=== PATIENT | male | born 1975 | race Caucasian/White ===

== ENCOUNTER 2019-09-21 12:58 | Outpatient (CLI) | payer MEDICAID ==
[2019-09-21 13:50] VITALS: BP 118/75
--- NOTE | 2019-09-21 13:50 | SLEEP CARE CONSULTATION ---
Information from patient questionnaire entered by Massiel Kemp. I have reviewed and concur with the information entered by Massiel Kemp. This document represents the service I personally performed and the decisions made by me, Osbaldo Layne MD, [facility]. History of Present Illness Reason for Visit: New patient Chief Complaint: reports: Insomnia, Unrefreshed sleep, Snoring, Excessive daytime sleepiness, Observed pauses in breathing, Fatigue, Frequent awakenings at night Duration of Symptoms: several years Usual bedtime: 2211-0825 Time it takes to fall asleep: 60 Snores at night: Yes Observed to quit breathing while asleep: Yes Sleeps alone due to snoring: No Number of times waking at night: 2-3 Reasons for waking at night: reports: Pain, Bathroom Recalls having dreams: Yes Usually gets out of bed at: [id number] Feels refreshed in the morning: No Morning headache: No Sleepy or fatigued during the day: Yes Ever fallen asleep while driving: No Takes day naps: No Dreams during day naps: No Prior sleep studies: No Additional HPI information: I had the pleasure of seeing Mr. Alvarez today regarding the possibility of him having a sleep disorder. As you know, he is a 43 year old gentleman who complains of not sleeping well. Recently, he was seen in the ER and observed to stop breathing while sedated. The patient tells me that he normally goes to bed around 10:30 - 11 pm, and it takes him approximately 60 minutes to fall asleep. He has been told that he snores loudly and irregularly at night. He has also been observed to stop breathing in his sleep. His occasionally can still sleep in the same bed. He can recall waking up on the average of 2 - 3 times during the night. Most of the time he wakes up because of having to use the bathroom and indigestion. He has awakened occasionally because of his own snori ng, choking, and having to gasp for air. There is not a lot of tossing and turning in his sleep. No somniloquy (sleep talking) or somnambulism (sleep walking). Generally he can recall having dreams. In the morning he usually gets up out of the bed around 7:30 - 8 a.m. not feeling refreshed nor rested. He usually does not have a morning headache. During the day he complains of feeling sleepy and fatigued. His score on [place] Sleepiness Scale is 12 out of 24. He has never fallen asleep while driving nor has had any accident due to sleepiness. He usually does not take naps during the day. Upon falling asleep during the day he denies having vivid dreams. He has never had sleep paralysis, experienced cataplexy or symptoms of restless leg syndrome. He denies having impaired concentration during the day. 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 Patient is and lives in [place]. Have you smoked in the past 12 months: No Alcohol use: No Caffeine use: Yes Caffeine amount and frequency: 1/day Family History Family history of sleep disordered breathing: Yes Family Hx Sleep Apnea: Mother: Sleep apnea - Treated, Father: Snoring Allergies and Home Medications Drug allergies reviewed: Yes Home medication list reviewed: Yes Review of Systems Weight gain over past 5 years: 15 Cardiovascular: denies: high blood pressure, palpitations, chest pain, irregular heart rate or pulse, leg or foot swelling, have to sleep sitting up, other Respiratory: denies: shortness of breath, wheeze, sputum production, chronic cough, other Gastrointestinal: reports: heartburn Urinary: denies: incontinence, frequency, urgency, impotence, other Neurological: denies: headaches, seizure, head trauma, disorientation, speech dysfunction, gait or balance problems, fainting or unconsciousness, other Psychiatric: denies: Attention Deficit Hyperactivity, anxiety, depression, mood disorder, claustrophobia, other Ear/Nose/Throat: reports: nasal congestion, wisdom teeth removed Musculoskeletal: reports: neck pain, back pain Immunologic: reports: sneezing, itching Physical Exam Vital signs obtained and entered by: Dr. Layne Blood Pressure: 118/75 Cuff size: regular Heart Rate: 83 O2 Saturation: 97 Height: 5 ft 7 in Weight: 210 lb Body Mass Index: 32.8 BMI Classification: Obesity Class 1 Neck circumference: 16.5 Mood/affect: normal HEENT: No craniofacial malformation Nostrils: patent to airflow Turbinates: normal Septum: midline Mouth and throat: narrow oropharynx Soft palate: long Hard palate: normal Uvula: normal Uvula visualization: 100% Mallampati Class I Tongue: normal in size Tonsils: small Chin and jaw: normal size and position Neck: normal w/o lymphadenopathy or thyromegaly Heart: regular rate and rhythm Lungs: wheeze Abdomen: soft, non-tender Extremities: no edema or clubbing Neurologic: intact, no focal deficits Impression and Plan IMPRESSION: 1. Obstructive Sleep Apnea-Hypopnea Syndrome, as suggested by history of loud and irregular snoring, observed cessation of breath while asleep, frequent river ken[place] during the night, unrefreshed sleep, and daytime hypersomnolence. Narrow oropharynx and obesity are common predisposing factors for obstructive sleep apnea-hypopnea syndrome. Pathophysiology of sleep-disordered breathing was discussed. I recommend proceeding to polysomnography to confirm the diagnosis and to assess severity. If he has significant sleep disordered breathing, a manual CPAP titration study will also be performed to find the optimal treatment pressure. I informed the patient of what the sleep studies involve and after some discussion, he agreed to proceed. Plan: 1. Schedule polysomnography + manual CPAP titration study and return in 1 to 2 weeks after the study to discuss result and initiate therapy. 2. Avoid long distance driving or when feeling sleepy. 3. Avoid alcohol, sedative and muscle relaxant around bedtime. 4. Attempt to lose weight. I spent 100% of this 20 minute visit face to face with the patient with greater than 50% of this was spent time counseling the patient and coordination of care.
== END 2019-09-21 12:59 | disposition home or self-care (01) ==
LOC: SC 12:58
PROVIDERS: ATTEND Internal Medicine Pulmonary Disease
DX: G47.10 Hypersomnia, unspecified (principal); R06.83 Snoring; R06.81 Apnea, not elsewhere classified; G47.8 Other sleep disorders; E66.9 Obesity, unspecified; Z68.32 Body mass index [BMI] 32.0-32.9, adult
CPT/HCPCS: 99203; 99212

== ENCOUNTER 2019-10-05 20:27 | Outpatient (CLI) | payer MEDICAID | END 2019-10-05 20:28 | disposition home or self-care (01) | LOC: SC 20:27 | PROVIDERS: ATTEND Internal Medicine Pulmonary Disease | DX: G47.33 Obstructive sleep apnea (adult) (pediatric) (principal) | CPT/HCPCS: 95811 ==

== ENCOUNTER 2019-11-17 13:13 | Outpatient (CLI) | payer MEDICAID ==
[2019-11-17 14:41] VITALS: BP 114/66
--- NOTE | 2019-11-17 14:41 | SLEEP CARE CONSULTATION ---
Information from patient questionnaire entered by Nancy Hoskins. I have reviewed and concur with the information entered by Nancy Hoskins. This document represents the service I personally performed and the decisions made by me, Shantal Montes, RN, MSN, [employer]. History of Present Illness Initial [place] Sleepiness Scale score: 12 Current [place] Sleepiness Scale score: 13 Additional HPI information: RIVER MCGHEE III returns for follow up and results of the recently performed polysomnography. I explained the pathophysiology behind obstructive sleep apnea. We then spent quite a bit of time discussing different treatment options. For mild obstructive sleep apnea, surgery and oral appliance are alternatives to nasal CPAP therapy but in moderate or severe cases, nasal CPAP is the most effective and reliable treatment. I reviewed the impact of weight changes on sleep apnea and strongly recommended losing weight. After some discussion, the patient opted to go with the nasal CPAP therapy. Patient reported higher pressure used woke him in late part of sleep thud I will start him on nasal autoCPAP set at 8-12 cmH20 as the recommended alternative pressure recommended by Dr. Layne with rationale explained. I explained how CPAP machine works with sample devices [employer] Dreamstation and Buy buy tea [id number] and what to expect when using the machine. Using CPAP every night in order to get used to it was emphasized. Patient advised to put CPAP mask on before getting into bed so as not to fall asleep without CPAP. To assist acclimation to CPAP use, it could also be used for a short time during day while reading or watching TV. The patient was instructed to call the CPAP supplier to discuss any mechanical problem that may occur. If the mask given is uncomfortable or is difficult to keep on through the night even with adjustment, contact the CPAP supplier as many will replace with another mask style if notified before 30 days. If snoring or perceives is not getting enough air or too much air from the machine, notify this office. [place] patient education PAP tips reviewed and given to patient. Dreamstation preferred by patient. Patient counseled not drink alcohol less than 4 hours before bedtime as it can increase snoring and apnea. Patient was cautioned about risks of drowsy driving until sleepiness symptoms resolve. Patient denies drowsy driving. [place] patient education on snoring and sleep apnea given and reviewed. Sleep Study - Results Polysomnography/Home Sleep Study results: Physician's Impression: The quality of the study is good. CPAP was initiated 170.3 minutes into the study and titrated up from 4 cmH2O and titrated up to CPAP at 12 cmH2O. DIAGNOSTIC: The patient had slightly reduced sleep efficiency due to awakenings after the sleep onset. The sleep architecture was abnormal for sleep fragmentation and lack of REM sleep. Respiratory monitoring showed very severe obstructive sleep apnea-hypopnea (AHI = 72.9) associated with frequent arousals, oxyhemoglobin desaturation and mild hypoxia (peace oxygen saturation of 82%). The patient only slept supine during this study. Snoring was moderate to loud in intensity. There was no significant periodic limb movement of sleep. THERAPEUTIC: CPAP at 12 cmH2O appeared to be optimal (AHI of 3.0 per hour on the pressure). There was supine REM sleep on the pressure. Oxygen saturation was at. Lower CPAP settings allowed a few residual respiratory events. The patient appeared to have tolerated positive airway pressure therapy well. The patients sleep efficiency was minimally reduced. The sleep architecture was abnormal for sleep fragmentation and reduced amount of time spent in REM sleep. There was no significant periodic limb movement of sleep. Cardiac rhythm was normal sinus rhythm without significant arrhythmia. No abnormal behavior (parasomnia) observed during the night. Allergies and Home Medications Known drug allergies: No Home medication list reviewed: Yes (no changes) Allergy and home medication list: Prilosec daily Proventil inhaler prn Review of Systems Review of systems same as previous: Yes Physical Exam Blood Pressure: 114/66 Cuff size: long Heart Rate: 83 O2 Saturation: 98 Height: 5 ft 7 in Weight: 212 lb 12.8 oz Body Mass Index: 33.3 BMI Classification: Obesity Class 1 Impression and Plan 1. Obstructive Sleep Apnea-Hypopnea Syndrome, very severe, with lowest oxygen saturation of 82%. Obviously this is the cause of the patients symptoms of unrefreshed sleep, and excessive daytime sleepiness. Positive pressure therapy could benefit gerd. As mentioned above, the patient will be started on nasal autoCPAP therapy with pressure set at 8-12 cmH2O. An urgent set will be ordered due to severity of his apnea. Compliance guidelines also reviewed. A copy of compliance guidelines will be given for reference at check out. Until patient can use CPAP, he is advised to raise the head of his bed 30-40 degrees to decrease apnea risk. * Nasal auto CPAP therapy, pressure at 8-12m H2O. - urgent set up * Dreamstation autoCPAP preferred by patient. * Attempt to lose weight. * Avoid alcohol consumption near bedtime. * The patient is again cautioned about driving until sleepiness completely resolves. * Return one month after CPAP obtained. I will assess response to therapy and compliance at that time. Time Spent with Patient (minutes): 30 I spent 100% of this visit face to face with the patient with greater than 50% of this was spent time counseling the patient and coordination of care.
== END 2019-11-17 13:14 | disposition home or self-care (01) ==
LOC: SC 13:13
PROVIDERS: ATTEND Nurse Practitioner Family
DX: G47.33 Obstructive sleep apnea (adult) (pediatric) (principal); E66.9 Obesity, unspecified; Z68.33 Body mass index [BMI] 33.0-33.9, adult
CPT/HCPCS: 99212; 99214

== ENCOUNTER 2020-02-15 16:47 | Outpatient (CLI) | payer MEDICAID ==
--- NOTE | 2020-02-15 11:50 | SLEEP CARE CONSULTATION ---
Information from patient questionnaire entered by Massiel Kemp. I have reviewed and concur with the information entered by Massiel Kemp. This document represents the service I personally performed and the decisions made by me, Osbaldo Layne MD, [facility]. History of Present Illness Service Date and Time: 02/15/2020 1140 Previous diagnosis: Very Severe, Obstructive Sleep Apnea-Hypopnea Syndrome AHI: 72.9 Reason for follow up: first compliance Equipment type: CPAP Equipment obtained from: [facility] HPI additional information: To minimize the risk of COVID-19 exposure, the patient has requested and consented to this telephone visit. The patient also agrees to having his insurance billed. HPI: Mr. Alvarez was called today to follow up on the nasal CPAP therapy. He was diagnosed to have very severe obstructive sleep apnea-hypopnea syndrome. The patient wears a [employer] DreamWear nasal pillows. He reports using the device nightly and all through the night. The compliance report shows usage in 29 nights out of the past 30 nights, averaging 5 hours a night. The > 4 hour compliance rate for the past 30 days is 70%. He complained of no particular problem with the device such as soreness on the face, dry nose, epistaxis, nasal congestion or headache. He thinks that the pressure of 8 12 cmH2O is comfortable. On the CPAP therapy he notices improvement in his sleep quality, and that he wakes up feeling fresher in the morning and more awake/alert during the day. His notices no snore at all. The average residual AHI is 5.8; and average time in large leak per day is 23 seconds. The 90th percentile pressure is 10.2 cmH2O. CPAP Compliance Data - Data Reviewed with Patient Average duration of nightly device use: 4h 57m Compliance rate %: 70 Current pressure setting (cmH2O): 8-12 Humidity settin Heated hose settin Average residual AHI: 5.8 Average large leak: 23s Subjective Initial [place] Sleepiness Scale score: 12 Allergies and Home Medications Drug allergies reviewed: Yes Home medication list reviewed: Yes Review of Systems Review of systems same as previous: Yes Physical Exam Height: 5 ft 7 in Impression and Plan IMPRESSION: 1. Obstructive Sleep Apnea-Hypopnea Syndrome, very severe (AHI was 72.9) with the patient doing well on nasal CPAP therapy. He has good compliance and significant clinical improvement. The current pressure appears slightly ineffective but comfortable. His mask fits well. Overall, he is very satisfied with treatment and plans to continue with it long-term. Because the residual AHI is slightly high, I will raise the pressure range to 10 15 cmH2O. PLAN: 1. Raise autoCPAP to 10 - 15 cmH2O via the modem, done. 2. Try to lose weight 3. Try other masks and nasal pillows. 4. Return in one year for follow up or earlier if there is any problem with the treatment. Visit Type: Telehealth Phone Location of Provider: Home Patient agrees and consents to this telehealth visit type: Yes Time Spent with Patient (minutes): 10 Provider Statement: I spent 100% of the Telehealth Phone Call with the patient with greater than 50% spent counseling the patient and coordination of care.
== END 2020-02-15 16:48 | disposition home or self-care (01) ==
LOC: SC 16:47
PROVIDERS: ATTEND Internal Medicine Pulmonary Disease
DX: G47.33 Obstructive sleep apnea (adult) (pediatric) (principal)

== ENCOUNTER 2021-02-05 11:44 | Outpatient (CLI) | payer MEDICAID ==
--- NOTE | 2021-02-05 11:57 | SLEEP CARE CONSULTATION ---
Information from patient questionnaire entered by Pretty Garcia. I have reviewed and concur with the information entered by Pretty Garcia. This document represents the service I personally performed and the decisions made by me, Osbaldo Layne MD, [facility]. History of Present Illness Service Date and Time: 02/05/2021 1144 Previous diagnosis: Very Severe, Obstructive Sleep Apnea-Hypopnea Syndrome AHI: 72.9 Reason for follow up: annual (Last seen 02/2020) Equipment type: CPAP Equipment obtained from: [facility] Prior sleep studies: Yes Year and Where: 2015 [facility] HPI additional information: To minimize the risk of COVID-19 exposure, the patient has requested and consented to this telephone visit. The patient also agrees to having his insurance billed. HPI: Mr. Alvarez was diagnosed to have very severe obstructive sleep apnea-hypopnea syndrome and was called today for follow up of CPAP therapy. The patient purchased the device from [facility] in [place] and was fitted with a nasal mask. He uses the device nightly and all through the night. The compliance report shows that he uses the device 167 nights out of the past 180 nights, averaging 6.6 hours a night. He complains of nasal congestion but no particular problem with the device such as soreness on the face, dry nose, epistaxis, or headache. He thinks that the pressure of 10 - 15 cmH2O is comfortable. On the CPAP therapy he notices improvement in his sleep quality, and that he wakes up feeling fresher in the morning and more awake/alert during the day. His notices no snore at all. The average residual AHI is 2.8; and average time in large leak per day is 1 minute a night. The 90th percentile pressure is 11.5 cmH2O. CPAP Compliance Data - Data Reviewed with Patient Average duration of nightly device use: 6 h 39 min Compliance rate %: 87.2 Current pressure setting (cmH2O): 10-15 Humidity settin Heated hose settin Average residual AHI: 2.8 Average large leak: 1 min 18 sec Subjective Initial [place] Sleepiness Scale score: 12 (in 2019) Allergies and Home Medications Drug allergies reviewed: Yes Home medication list reviewed: Yes Review of Systems Review of systems same as previous: Yes Physical Exam Height: 5 ft 7 in Weight: 220 lb Body Mass Index: 34.4 BMI Classification: Obese Impression and Plan IMPRESSION: 1. Obstructive Sleep Apnea-Hypopnea Syndrome, very severe (AHI was 72.9 in 2019) with the patient continuing to do well on nasal CPAP therapy. He has excellent compliance and significant clinical benefits. The current pressure appears effective and comfortable. Overall, he is very satisfied with treatment and plans to continue with it long-term. No adjustment is necessary today. PLAN: 1. Continue with autoCPAP set at 10 - 15 cm H2O. 2. Try to lose weight 3. Raise the heated humidifier for nasal congestion 4. Return in one year for follow up or earlier if there is any problem with the treatment. Follow up recommended for: Weight management Visit Type: Telehealth Video Video Type: VSee Time Spent with Patient (minutes): 15 Provider Statement: I spent 100% of the Telehealth Video Call with the patient with greater than 50% spent counseling the patient and coordination of care.
== END 2021-02-05 11:45 | disposition home or self-care (01) ==
LOC: SC 11:44
PROVIDERS: ATTEND Internal Medicine Pulmonary Disease
DX: G47.33 Obstructive sleep apnea (adult) (pediatric) (principal); E66.9 Obesity, unspecified; Z68.34 Body mass index [BMI] 34.0-34.9, adult

== ENCOUNTER 2022-07-04 08:00 | Outpatient (CLI) | payer MEDICAID ==
--- NOTE | 2022-07-04 19:49 | XRAY Report ---
PROCEDURE: Thoracic Spine 2 View INDICATIONS: THORACIC AND LOW BACK PAIN TECHNIQUE: 2 views of the thoracic spine were acquired. COMPARISON: None. FINDINGS: Bones: No fractures or dislocations. Degenerative endplate changes and loss of disc height and mid t o lower thoracic spine there is seen. No suspicious bony lesions. 12 pairs of ribs are noted, and ap pear intact where visualized. Soft tissues: No paravertebral stripe thickening. 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 No acute compression fracture or spondyloli sthesis. Reviewed by: Gaston Sultana MD on 07/04/2022 7:47 PM PDT Approved by: Gaston Sultana MD on 07/04/2022 7:47 PM PDT Station ID: [id number]
--- NOTE | 2022-07-04 19:51 | XRAY Report ---
PROCEDURE: Lumbar Spine 2 View INDICATIONS: THORACIC AND LOW BACK PAIN TECHNIQUE: 2 views of the lumbar spine were acquired. COMPARISON: None. FINDINGS: Bones: 5 [id number] vertebrae are present. There is mild levoscoliosis of lumbar spine centere d at L3 level. No acute compression fracture. There is suggestion of pars defects at L5 level with 1. 2 cm anterolisthesis of L5 on S1. Degenerative endplate changes are seen at L4-5 and L5-S1 levels. No suspicious bony lesions. Soft tissues: Overlying bowel gas pattern is normal. No suspicious soft tissue calcifications. IMPRESSION: Suggestion of pars defects at L5 level with 1.2 cm anterolisthesis of L5 on S1. Degenera tive and disc disease at L4-5 and L5-S1 levels. Reviewed by: Gaston Sultana MD on 07/04/2022 7:49 PM PDT Approved by: Gaston Sultana MD on 07/04/2022 7:49 PM PDT Station ID: [id number]
== END 2022-07-04 23:59 | disposition home or self-care (01) ==
LOC: DI.S 08:00
PROVIDERS: ATTEND Registered Nurse
DX: M51.34 Other intervertebral disc degeneration, thoracic region (principal); M47.816 Spondylosis without myelopathy or radiculopathy, lumbar region; M47.817 Spondylosis without myelopathy or radiculopathy, lumbosacral region; M51.36 Other intervertebral disc degeneration, lumbar region; M51.37 Other intervertebral disc degeneration, lumbosacral region; M43.17 Spondylolisthesis, lumbosacral region

== ENCOUNTER 2022-09-16 14:08 | Outpatient (CLI) | payer MEDICAID ==
[2022-09-16 20:03] LABS: CALCIUM 8.8 mg/dL (8.5-10.3); CREATININE 0.8 mg/dL (0.6-1.2)
== END 2022-09-16 14:09 | disposition home or self-care (01) ==
LOC: LAB.S 14:08
PROVIDERS: ATTEND Registered Nurse
DX: Z79.899 Other long term (current) drug therapy (principal)
CPT/HCPCS: 36415; 80048

== ENCOUNTER 2023-07-14 00:05 | Emergency (ER) | payer MEDICAID ==
[2023-07-14] MEDS ORDERED: KETOROLAC 15 MG/ML VIAL IVP STA (00:20)
[2023-07-14] MEDS ORDERED: DEXAMETHASONE 10 MG/ML VIAL IVP STA (00:20)
[2023-07-14] MEDS ORDERED: ACETAMINOPHEN 325 MG TABLET PO STA (00:20)
[2023-07-14] MEDS ORDERED: LIDOCAINE PATCH 5% TOP STA (00:21)
[2023-07-14] MEDS ORDERED: methocarbamoL 500 MG TABLET PO STA (00:22)
[2023-07-14] MEDS ORDERED: KETAMINE 500 MG/10 ML VIAL ONE (00:59)
[2023-07-14] MEDS ORDERED: KETAMINE 200 MG/20 ML VIAL IV ONE (01:00)
[2023-07-14] MEDS ORDERED: KETAMINE 500 MG/10 ML VIAL IVP STA (01:01)
--- OUTSIDE RECORDS SUMMARY | 2023-07-14 01:26 | EXTERNAL MEDICAL SUMMARY RPT | Continuity of Care Document ---
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 Name Role Phone Unavailable Unavailable Unavailable Isabella Cardozo Unavailable Unavailable Medications date description facility 2023-06-22 00:00 pregabalin [facility] 2023-06-22 00:00 albuterol sulfate [facility] 2023-06-22 00:00 fluticasone propionate [facility] 2023-04-15 00:00 ibuprofen [facility] 2023-06-22 00:00 ibuprofen [facility] 2023-06-16 00:00 metformin [facility] 2023-06-16 00:00 metformin [facility] 2023-06-22 00:00 albuterol sulfate [facility] 2023-06-22 00:00 fluticasone propionate [facility] 2023-06-22 00:00 albuterol sulfate [facility] 2023-04-15 00:00 ibuprofen [facility] 2023-06-22 00:00 ibuprofen [facility] 2023-06-16 00:00 metformin [facility] 2023-06-22 00:00 pregabalin [facility] 2023-04-15 00:00 ibuprofen [facility] 2023-06-22 00:00 ibuprofen [facility] 2023-06-22 00:00 pregabalin [facility] 2023-06-22 00:00 albuterol sulfate [facility] 2023-06-16 00:00 metformin [facility] 2023-06-22 00:00 fluticasone propionate [facility] 2023-06-22 00:00 fluticasone propionate [facility] 2023-06-22 00:00 pregabalin [facility] Problems date description facility 2023-06-16 00:00 Other abnormal glucose [facility] 2023-06-16 00:00 Hyperglycemia [facility] 2023-06-16 00:00 Hyperglycemia, unspecified [facility] Procedures date description facility 2023-06-16 00:00 Visit Code Hold [facility] Social History date description facility 2023-06-16 00:00 Never smoker [facility] Vital Signs date measurement value units 2023-06-16 00:00 BMI 44.14 kg/m2 2023-06-16 00:00 BP_diastolic 91 mmHg 2023-06-16 00:00 BP_systolic 145 mmHg 2023-06-16 00:00 heart_rate 97 /min 2023-06-16 00:00 height_metric 171.45 cm 2023-06-16 00:00 height_standard 67.5 in 2023-06-16 00:00 respiration_rate 18 /min 2023-06-16 00:00 temperature_metric 36.56 C 2023-06-16 00:00 temperature_standard 97.8 F 2023-06-16 00:00 weight_metric 129.27 kg 2023-06-16 00:00 weight_standard 285 lb
--- NOTE | 2023-07-14 01:43 | ED Physician Documentation ---
PD HPI BACK PAIN - Stated complaint Stated Complaint: BACK PX - Chief complaint Chief Complaint: Back Pain - History obtained from History obtained from: Patient, Family - Additional information Additional information: 47-year-old male with history of chronic lumbar back pain presents by private vehicle from home for right-sided buttock pain that radiates down his leg. Patient states that he is receiving injections in his back that insurance has mandated before he can be considered for back surgery. He received his third injection earlier this week, however his pain has not improved. He has been taking anti-inflammatories and muscle relaxers without improvement. He is here today for pain control. He denies numbness, weakness, tingling. He has been applying ice packs to his buttock region without improvement. Review of Systems Constitutional: denies: Fever, Chills GI: denies: Abdominal Pain, Nausea, Vomiting, Constipation, Diarrhea : denies: Dysuria, Unable to Void, Incontinent Musculoskeletal: reports: Back pain, Extremity pain. denies: Neck pain, Joint pain, Extremity swelling Neurologic: denies: Generalized weakness, Focal weakness, Numbness, Difficulty speaking, Near syncope PD PAST MEDICAL HISTORY - Past Medical History Respiratory: Asthma, Sleep apnea, CPAP use Musculoskeletal: Chronic back pain Other Past Medical History: L4-L5 compression, SI - Past Surgical History Past Surgical History: Yes - Present Medications Home Medications: Ambulatory Orders Medication Instructions Recorded Confirmed Cyclobenzaprine [Flexeril] 10 mg PO TID 07/14/23 07/14/23 Ibuprofen [Motrin] 600 mg PO Q6H PRN 07/14/23 07/14/23 Pregabalin 50 mg PO TID 07/14/23 07/14/23 methylPREDNISolone [Medrol Dose 1 each PO .PACKAGEINSTRUCTIONS 6 07/14/23 Pack] Days #1 each - Allergies Allergies/Adverse Reactions: Allergies Allergy/AdvReac Type Severity Reaction Status Date / Time No Known Drug Allergies Allergy Verified 07/14/23 00:09 - Social History Does the pt smoke?: No Smoking Status: Never smoker - Immunizations Immunizations are current?: Yes PD ED PE NORMAL - Vitals Vital signs reviewed: Yes - General General: Alert and oriented X 3, Well developed/nourished, Other (uncomfortable, morbidly obese) - HEENT HEENT: Atraumatic - Neck Neck: Supple, no meningeal sign, No bony TTP - Cardiac Cardiac: RRR - Respiratory Respiratory: No respiratory distress - Abdomen Abdomen: Soft, Non tender - Derm Derm: Normal color, Warm and dry, No rash - Extremities Extremities: No deformity, No edema, Other (ROM decreased due to pain) - Neuro Neuro: Alert and oriented X 3, director of patient safety 2-12 intact, No motor deficit, Normal speech - Psych Psych: Normal mood, Normal affect Results - Vitals Vitals: Vital Signs - 24 hr 07/14/23 07/14/23 07/14/23 00:09 01:27 02:16 Temperature 36.8 C Heart Rate 95 86 81 Respiratory 16 15 12 Rate Blood Pressure 160/90 H 155/86 H 150/85 H O2 Saturation 99 98 99 Oxygen O2 Source Room air PD Medical Decision Making - ED course Complexity details: reviewed results, re-evaluated patient, considered differential, d/w patient, d/w family ED course: Patient presenting for assistance in pain control - hx of sciatic pain and chronic lumbar back pain that has been failing spinal injections. No midline vertebral tenderness, no s/s of cauda equina. Patient given non-narcotic medications for pain control including analgesic dose of ketamine. Patient reported improvement in pain. He states that if this current injection of pain medication failed then the next step was consulting for possible back surgery. DC on steroid taper. Patient already has anti-inflammatory and muscle relaxers at home. Departure - Departure Disposition: 01 Home, Self Care Clinical Impression: Back pain Qualifiers: Back pain location: low back pain Chronicity: chronic Back pain laterality: right Sciatica presence: with sciatica Sciatica laterality: sciatica of right side Qualified Code(s): M54.41 - Lumbago with sciatica, right side Condition: Stable Instructions: ED Sciatica Prescriptions: methylPREDNISolone [Medrol Dose Pack] 1 each PO .PACKAGEINSTRUCTIONS 6 Days #1 each Comments: RX SENT TO [facility] IN [place]. FOLLOW UP WITH YOUR BACK PAIN SPECIALIST Discharge Date/Time: 07/14/23 02:17
[2023-07-14 02:18] VITALS: BP 150/85; O2SAT 99
== END 2023-07-14 02:17 | disposition home or self-care (01) ==
LOC: ED 00:05
DX: M54.41 Lumbago with sciatica, right side (principal)
CPT/HCPCS: 96374; 96375; 99283

== ENCOUNTER 2023-09-11 13:40 | Outpatient (CLI) | payer MEDICAID ==
--- NOTE | 2023-09-11 16:15 | MRI Report ---
PROCEDURE: LUMBAR SPINE WO INDICATIONS: SPONDYLOLISTHESIS OF LUMBAR TECHNIQUE: Multiplanar multisequential MRI images of the lumbar spine were obtained without intraven ous contrast. COMPARISON: None. FINDINGS: Alignment and Curvature: There is normal bony alignment. Bone Marrow: Marrow is of normal overall signal. No acute vertebral body compression fractures. No sacral fractures. Spinal Cord: There is an well-defined intrathecal mass lesion filling the central canal at the L1 to level extending 3.8 cm in length measuring 1.5 cm in diameter. Internal cysts are noted. Lesion is b elow the conus medullaris which terminates at the mid L1 level. No osseous erosion or remodeling. Paraspinal Soft Tissues: Unremarkable perivertebral soft tissues. At the remaining disc levels, no disc bulge, central or foraminal stenosis. IMPRESSION: Intrathecal extramedullary mass lesion at the L1-2 level just below the conus. 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 Differential would be schwannoma Reviewed by: Ahsan Encinas MD on 09/11/2023 3:14 PM [place] Approved by: Ahsan Encinas MD on 09/11/2023 3:14 PM [facility] Station ID: [id number]
--- NOTE | 2023-09-11 16:43 | CT Report ---
PROCEDURE: CT lumbar spine without contrast INDICATIONS: SPONDYLOLISTHESIS OF LUMBAR TECHNIQUE: Helical axial CT of the lumbar spine was obtained without contrast and reformatted in mul tiple planes. Radiation dose reduction was achieved utilizing automated exposure control or adjustmen t of mA and/or kV according to patient size. COMPARISON: Concurrent MRI lumbar spine 09/11/2023 FINDINGS: Bones: There is normal bony alignment. No acute vertebral body compression fractures. No suspiciou s lytic or blastic bony lesions. Central spinal caliber is of normal overall caliber. No pars defec ts. Soft tissues: No retroperitoneal masses or hematomas. Visualized aorta is normal in caliber. T12-L1: Normal in appearance. L1-L2: Normal in appearance. L2-L3: Normal in appearance. L3-L4: Normal in appearance. L4-L5: Normal in appearance. L5-S1: Normal in appearance. IMPRESSION: Normal CT of the lumbar spine without osseous remodeling or malalignment. Please refer to concurrent MRI lumbar spine regarding intrathecal mass lesion Reviewed by: Ahsan Encinas MD on 09/11/2023 3:42 PM [place] Approved by: Ahsan Encinas MD on 09/11/2023 3:42 PM [facility] Station ID: [id number]
--- NOTE | 2023-09-11 19:17 | XRAY Report ---
PROCEDURE: Lumbar Spine 2 View INDICATIONS: SPONDYLOLISTHESIS OF LUMBAR TECHNIQUE: 3 view(s) of the lumbar spine were acquired. COMPARISON: None. FINDINGS: Bones: Bilateral L5 pars defects and grade 2 anterior spondylolisthesis. Spinal listhesis measures 1 .5 cm on neutral positioning, 1.4 cm on extension and 1.1 cm flexion. Remainder the vertebral body heights and alignment are maintained Soft tissues: Overlying bowel gas pattern is normal. No suspicious soft tissue calcifications. IMPRESSION: Grade 2 isthmic spondylolisthesis at L5-S1 with 4 mm of translation between flexion and extension, carter ggesting an element of instability Reviewed by: Ahsan Encinas MD on 09/11/2023 6:16 PM [facility] Approved by: Ahsan Encinas MD on 09/11/2023 6:16 PM [facility] Station ID: [id number]
== END 2023-09-11 13:41 | disposition home or self-care (01) ==
LOC: DI 13:40
PROVIDERS: ATTEND Physician Assistant Medical
DX: M43.17 Spondylolisthesis, lumbosacral region (principal); M54.17 Radiculopathy, lumbosacral region; G95.9 Disease of spinal cord, unspecified

== ENCOUNTER 2023-10-16 11:30 | Outpatient (CLI) | payer MEDICAID ==
--- NOTE | 2023-10-16 19:20 | CT Report ---
PROCEDURE: LUMBAR SPINE WO INDICATIONS: LOW BACK PAIN, BRAIN CA STAGING TECHNIQUE: Noncontrast 3 mm thick sections acquired from the T12 level to the sacrum. Sagittal and coronal refo rmats were constructed. For radiation dose reduction, the following was used: automated exposure co ntrol, adjustment of mA and/or kV according to patient size. COMPARISON: Lumbar spine CT dated 09/11/2023. FINDINGS: Image quality: Excellent. Bones: There is normal bony alignment. No acute vertebral body compression fractures. No suspiciou s lytic or blastic bony lesions. There is a known intrathecal extra medullary mass at the L1-L2 level which is well seen on the recent previous MRI. It is not identifiable on today's CT. Bilateral L5 pa rs defects. T12-L1: Normal in appearance. L1-L2: Normal in appearance. L2-L3: Normal in appearance. L3-L4: Normal in appearance. L4-L5: Normal in appearance. L5-S1: Bilateral L5 pars defects. Trace anterolisthesis of L5 on S1. Moderate right foraminal narro wing. This was present previously. There is also incidental note of incomplete fusion of the posterio r elements of L5, spina bifida occulta. Soft tissues: No retroperitoneal masses or hematomas. Visualized aorta is normal in caliber. IMPRESSION: 1. The known intrathecal extra medullary mass at L1-L2 is not visible by noncontrast CT. 2. There are bilateral L5 pars defects and trace anterolisthesis of L5 on S1 with moderate right fora argenis narrowing. Reviewed by: Brandon Hidalgo MD on 10/16/2023 7:18 PM PST Approved by: Brandon Hidalgo MD on 10/16/2023 7:18 PM PST Station ID: [id number]
== END 2023-10-16 11:31 | disposition home or self-care (01) ==
LOC: DI 11:30
PROVIDERS: ATTEND Neurological Surgery
DX: M43.16 Spondylolisthesis, lumbar region (principal); M43.17 Spondylolisthesis, lumbosacral region; M51.37 Other intervertebral disc degeneration, lumbosacral region; M48.07 Spinal stenosis, lumbosacral region

== ENCOUNTER 2023-12-25 13:19 | Outpatient (CLI) | payer MEDICAID ==
--- NOTE | 2023-12-25 14:03 | Sleep Patient Instructions ---
Sleep Center Visit Summary - Patient Visit Information Reason for Visit: Annual follow-up - Patient Instructions Additional Instructions: You will continue with CPAP therapy with pressure set at 10-15 cmH2O. A supply prescription will be updated with your DME. We encourage you to continue to try to lose weight. Please follow up with the sleep care office in 1 year. - Clinic Information Contact: [facility] [address] [place] [email or web address] T: [phone]
--- NOTE | 2023-12-25 14:06 | SLEEP CARE CONSULTATION ---
Information from patient questionnaire entered by Marycruz Cowan. I have reviewed and concur with the information entered by Marycruz Cowan. This document represents the service I personally performed and the decisions made by me, Kathy Ureña ARNP. History of Present Illness Service Date and Time: 12/25/2023 1319 Previous diagnosis: Very Severe, Obstructive Sleep Apnea-Hypopnea Syndrome AHI: 72.9 (in 2018) Reason for follow up: annual (LAST SEEN 02/2021) Equipment type: CPAP (TOPETE Dreamstation 2, just got yesterday) Equipment obtained from: Other ([employer] last few purchases; [id number]) Mask style: Nasal Mask brand: Resmed ([id number], Medium cushion) Backup mask available: No Last cushion change: 5-6 months old Prior sleep studies: Yes Year and Where: 2015 formerly [facility] HPI additional information: RIVER MCGHEE was diagnosed to have very severe, AHI 72.9, obstructive sleep apnea-hypopnea syndrome and returned today for CPAP therapy annual follow-up. Sleep Study - Results Prior sleep studies: Yes Year and Where: 2015 Merged with [facility] CPAP Compliance Data - Data Reviewed with Patient Average duration of nightly device use: 7 HRS 53 MINS 1 SEC Compliance rate %: 98.9 (12/22/22-12/21/23; 365/365 days used) Current pressure setting (cmH2O): 10-15 Average residual AHI: 1.6 Central apnea: 0.2 Obstructive apnea: 1.1 Average large leak: 2 mins 2 secs Subjective Patient concerns: denies: aerophagia, mask discomfort, air blowing in eyes, mask leak noise, condensation in mask/hose, nasal congestion, dry mouth, nose, throat, epistaxis Observed to snore while using device: No Current pressure setting perceived as: comfortable On therapy, patient: reports: sleeping better, awakening more refreshed, being more awake and alert during the day, more rested overall. denies: drowsiness while driving Initial [place] Sleepiness Scale score: 12 (in 2018) Current [place] Sleepiness Scale score: 6 (12/25/23) Allergies and Home Medications Known drug allergies: No Drug allergies reviewed: Yes Home medication list reviewed: Yes (no changes) Allergy and home medication list: Allergies No Known Drug Allergies Allergy (Verified 12/23/23 13:54) Review of Systems Review of systems same as previous: Yes (NO CHANGE) Physical Exam Vital signs obtained and entered by: MARYCRUZ Bardales MA Blood Pressure: 150/91 (LEFT ARM) Cuff size: regular Heart Rate: 88 O2 Saturation: 98 Height: 5 ft 7 in Weight: 274 lb 6.4 oz Body Mass Index: 43.0 BMI Classification: Morbidly Obese Impression and Plan 1. Obstructive Sleep Apnea-Hypopnea Syndrome, very severe, with good treatment compliance and good apnea control. On CPAP therapy, the patient has better sleep quality and is more rested overall. He needs supplies, he has been buying online because his prescription for supplies was . He should be with [facility]. Patient has significant improvement of their sleep apnea and is satisfied with current CPAP therapy. Patient denies problems with oral dryness, nasal congestion, epistaxis, skin irritation or aerophagia. Patient's apnea severity and rationale for treatment to reduce apnea, improve sleep quality and reduce cardiovascular and cerebrovascular events was reviewed. I also reviewed the benefit of consistent device use of CPAP for gastric reflux and asthma. 2. Obesity, unspecified. Currently patients BMI is 43. Obesity increases the risk of apnea, CPAP pressure requirements and overall health risks especially cardiovascular and diabetes. Thus patient is advised to lose weight. * Continue auto CPAP pressure at 10-15 cmH2O * Update supply prescription * Notify me if snoring with mask or feeling that the pressure is too much or too little * Attempt to lose weight * Call this office if any problems using CPAP * Return for follow up in 12 months, or sooner if concerns arise Counseling Topics: Spare mask, Weight loss health impact Prescriptions: Device supplies Follow up with Sleep Care in: 1 year Visit Type: In Office Time Spent with Patient (minutes): 28 Provider Statement: I spent 100% of the Face to Face Visit with the patient with greater than 50% spent counseling the patient and coordination of care.
[2023-12-25 14:07] VITALS: BP 150/91; O2SAT 98
== END 2023-12-25 13:20 | disposition home or self-care (01) ==
LOC: SC 13:19
PROVIDERS: ATTEND Nurse Practitioner Family
DX: G47.33 Obstructive sleep apnea (adult) (pediatric) (principal); E66.01 Morbid (severe) obesity due to excess calories; Z68.41 Body mass index [BMI] 40.0-44.9, adult
CPT/HCPCS: 99212; 99213

== ENCOUNTER 2024-01-28 10:28 | Outpatient (CLI) | payer MEDICAID ==
[2024-01-28 14:41] LABS: BASOPHILS % (AUTO) 0.5 %; EOSINOPHILS # (AUTO) 0.2 10^3/uL (0.0-0.7); EOSINOPHILS % (AUTO) 2.8 %; HCT - HEMATOCRIT 45.3 % (42.0-52.0); HGB - HEMOGLOBIN 14.4 g/dL (14.0-18.0); LYMPHOCYTES # (AUTO) 1.3 10^3/uL (1.5-3.5); LYMPHOCYTES % (AUTO) 15.5 %; MEAN CORPUSCULAR HGB CONC 31.8 g/dL (32.0-36.0); MEAN CORPUSCULAR VOLUME 88.1 fL (80.0-94.0); MEAN PLATELET VOLUME 9.9 fL (7.4-11.4); MONOCYTES # (AUTO) 0.5 10^3/uL (0.0-1.0); MONOCYTES % (AUTO) 5.8 %; NEUTROPHILS # (AUTO) 6.4 10^3/uL (1.5-6.6); NEUTROPHILS % (AUTO) 74.6 %; PLT - PLATELET COUNT 306 10^3/uL (130-450); RED BLOOD COUNT 5.14 10^6/uL (4.70-6.10); RED CELL DISTRIBUTION WIDTH 13.8 % (12.0-15.0); WHITE BLOOD COUNT 8.6 x10^3/uL (4.8-10.8)
[2024-01-28 15:12] LABS: THYROID STIMULATING HORMONE 3.17 uIU/mL (0.34-5.60)
[2024-01-28 15:13] LABS: ALBUMIN 4.4 g/dL (3.2-5.5); ALBUMIN/GLOBULIN RATIO 1.7 (1.0-2.2); ALKALINE PHOSPHATASE 96 IU/L (42-121); ALT ALANINE AMINOTRANSFERASE 65 IU/L (10-60); AST ASPARTATE AMINOTRANSFERASE 26 IU/L (10-42); BILIRUBIN,TOTAL 0.7 mg/dL (0.2-1.0); BUN - BLOOD UREA NITROGEN 11 mg/dL (6-20); CALCIUM 9.6 mg/dL (8.5-10.3); CARBON DIOXIDE - CO2 25 mmol/L (21-32); CHLORIDE 104 mmol/L (101-111); CHOL/HDL RATIO 5.6 (<5.0); CHOLESTEROL 206 mg/dL; CREATININE 0.8 mg/dL (0.6-1.3); GFR - MDRD 102 (>89); GLUCOSE 117 mg/dL (74-104); HDL CHOLESTEROL 37 mg/dL; LDL CHOLESTEROL,CALCULATED 119 mg/dL; LDL/HDL RATIO 3.2 (<3.6); POTASSIUM 4.2 mmol/L (3.5-4.5); SODIUM 137 mmol/L (135-145); TRIGLYCERIDES 249 mg/dL (48-352); VLDL CHOLESTEROL 50 mg/dL
[2024-01-28 20:10] LABS: CREATININE,URINE 139.3 mg/dL; MICROALBUM/CREATININE RATIO,UR 7.9 ug/mg (<30.0); MICROALBUMIN,URINE 1.1 mg/dL
[2024-01-28 21:04] LABS: ESTIMATED AVERAGE GLUCOSE 120 mg/dL (70-100); HEMOGLOBIN A1c% 5.8 % (4.27-6.07)
== END 2024-01-28 10:29 | disposition home or self-care (01) ==
LOC: LAB.S 10:28
PROVIDERS: ATTEND Registered Nurse
DX: R73.9 Hyperglycemia, unspecified (principal); Z12.5 Encounter for screening for malignant neoplasm of prostate; Z13.228 Encounter for screening for other metabolic disorders; Z13.220 Encounter for screening for lipoid disorders; Z13.29 Encounter for screening for other suspected endocrine disorder; Z13.0 Encounter for screening for diseases of the blood and blood-forming organs and certain disorders involving the immune mechanism
CPT/HCPCS: 36415; 80053; 80061; 82043; 82570; 83036; 83721; 84153; 84443; 85025

== ENCOUNTER 2024-04-20 13:24 | Outpatient (CLI) | payer MEDICAID | END 2024-04-20 13:25 | disposition home or self-care (01) | LOC: NS 13:24 | PROVIDERS: ATTEND Registered Nurse | DX: Z71.3 Dietary counseling and surveillance (principal); E11.65 Type 2 diabetes mellitus with hyperglycemia; E66.9 Obesity, unspecified; Z68.41 Body mass index [BMI] 40.0-44.9, adult | CPT/HCPCS: 97803 ==

== ENCOUNTER 2024-05-18 14:07 | Outpatient (CLI) | payer MEDICAID | END 2024-05-18 14:08 | disposition home or self-care (01) | LOC: NS 14:07 | PROVIDERS: ATTEND Registered Nurse | DX: Z71.3 Dietary counseling and surveillance (principal); E11.65 Type 2 diabetes mellitus with hyperglycemia; E66.9 Obesity, unspecified; Z68.41 Body mass index [BMI] 40.0-44.9, adult | CPT/HCPCS: 97803 ==

== ENCOUNTER 2024-07-29 13:18 | Outpatient (CLI) | payer MEDICAID | END 2024-07-29 13:19 | disposition home or self-care (01) | LOC: NS 13:18 | PROVIDERS: ATTEND Registered Nurse | DX: Z71.3 Dietary counseling and surveillance (principal); E11.65 Type 2 diabetes mellitus with hyperglycemia; E66.9 Obesity, unspecified; Z68.41 Body mass index [BMI] 40.0-44.9, adult | CPT/HCPCS: 97803 ==